=== PATIENT | female | born 1975 | race Caucasian/White ===

== ENCOUNTER → 2020-04-19 | Outpatient (CLI) | payer MEDICARE, MEDICAID ==
[~2020-04-19] MED LIST: NO HOME MEDICATIONS
== END ==
LOC: ZCOL.LAB 20:14
DX: U07.1 COVID-19 (principal)

== ENCOUNTER → 2021-11-26 | Outpatient (CLI) | payer MEDICARE, MEDICAID | LOC: MC.RAD 12:46 | DX: Z12.31 Encounter for screening mammogram for malignant neoplasm of breast (principal) ==

== ENCOUNTER → 2023-04-29 | Outpatient (CLI) | payer MEDICARE | LOC: COL.CARD 12:59 | DX: R06.02 Shortness of breath (principal) | CPT/HCPCS: J7674 ==